=== PATIENT | female | born 1985 | race African-American/Black ===

== ENCOUNTER 2022-04-14 12:55 | Emergency (ER) | payer MEDICAID, OTHER ==
[~2022-04-14] VITALS: Ht 154.9 cm; Wt 68.0 kg
[2022-04-14] MEDS ORDERED: KETOROLAC 60MG/2ML VIAL IM ONE (14:00)
[2022-04-14 14:30] VITALS: BP 157/97
[2022-04-14] MEDS ORDERED: AMOX1TAB16 MT (14:58)
[2022-04-14] MEDS ORDERED: IBUP-2029 MT (14:58)
[2022-04-14] MEDS ORDERED: HYDR-4001 MT (14:58)
== END 2022-04-14 15:27 | disposition home or self-care (01) ==
LOC: ER 12:55
DX: K04.7 Periapical abscess without sinus (principal); R68.84 Jaw pain; J45.909 Unspecified asthma, uncomplicated
CPT/HCPCS: 96372; 99283; J1885